=== PATIENT | male | born 2005 | race Caucasian/White ===

== ENCOUNTER 2024-04-13 11:48 | Emergency (ER) | payer OTHER ==
[~2024-04-13] VITALS: Ht 180.3 cm; Wt 96.5 kg
[2024-04-13] MEDS ORDERED: ONDA-282 PO (13:07)
[2024-04-13 13:31] VITALS: BP 120/62; TEMP 98.9; O2SAT 97
== END 2024-04-13 14:05 | disposition home or self-care (01) ==
LOC: M ED 11:48
DX: R11.2 Nausea with vomiting, unspecified (principal); R19.7 Diarrhea, unspecified; Z79.899 Other long term (current) drug therapy

== ENCOUNTER 2024-10-29 07:40 | Emergency (ER) | payer OTHER ==
[~2024-10-29] VITALS: Ht 180.3 cm; Wt 96.4 kg
[~2024-10-29 07:40] MED LIST: ONDA-282 PO
[2024-10-29] MEDS ORDERED: ISOVUE-370 76% 100 ML VIAL As Ordered ONE (10:17)
[2024-10-29] MEDS: ONDANSETRON 4MG 2ML VIAL IV ONE (10:28)
[2024-10-29] MEDS: MORPHINE 2 MG/ML 1 ML VIAL IV PRN (10:28)
[2024-10-29 10:32] LABS: BASO # 0.0 10^3/uL (0.0-0.2); BASO % 0.5 % (0.0-1.0); EOS # 0.1 10^3/uL (0.0-0.5); EOS % 1.1 % (0.0-3.0); LYMPH # 1.8 10^3/uL (1.5-5.0); LYMPH % 28.0 % (24.0-44.0); MONO # 0.6 10^3/uL (0.0-0.8); MONO % 8.9 % (2.0-8.0); NEUTROPHILS # 4.0 10^3/uL (1.5-8.5); NEUTROPHILS % 61.2 % (36.0-66.0); PLATELET COUNT, AUTOMATED 306 10^3/uL (150-450)
[2024-10-29 10:49] LABS: INR 0.94
[2024-10-29 10:59] LABS: ALT/SGPT 33 U/L (7.0-40); AST/SGOT 37 U/L (<34); CALCIUM LEVEL 9.7 MG/DL (8.5-10.1); CARBON DIOXIDE LEVEL 28 MMOL/L (20-31); CHLORIDE LEVEL 105 MMOL/L (98-107); CREATININE FOR GFR 0.95 MG/DL (0.70-1.30); GLOMERULAR FILTRATION RATE > 90.0 (>60); POTASSIUM SERUM 4.9 MMOL/L (3.5-5.1); SODIUM LEVEL 143 MMOL/L (136-145)
[2024-10-29] MEDS ORDERED: ONDA-282 PO (12:45)
[2024-10-29] MEDS ORDERED: SUCR1SS PO (12:45)
[2024-10-29 13:25] VITALS: BP 111/54; TEMP 99.1; O2SAT 97
== END 2024-10-29 13:37 | disposition home or self-care (01) ==
LOC: M ED 07:40
DX: A08.39 Other viral enteritis (principal); R74.01 Elevation of levels of liver transaminase levels; F17.290 Nicotine dependence, other tobacco product, uncomplicated; Z79.899 Other long term (current) drug therapy
CPT/HCPCS: 71046; 74177; 80047; 80048; 80076; 83605; 83690; 85025; 85610; 85730; 86850; 86900; 86901; 93005; 93041; 96374; 99285; J2405; Q9967

== ENCOUNTER 2024-11-05 08:43 | Emergency (ER) | payer OTHER ==
[~2024-11-05] VITALS: Ht 180.3 cm; Wt 97.1 kg
[~2024-11-05 08:43] MED LIST changes: +SUCR1SS PO
[2024-11-05] MEDS ORDERED: MIRA3350 PO (08:49)
[2024-11-05] MEDS ORDERED: SUCR1ORA (08:49)
[2024-11-05 09:17] LABS: BASO # 0.0 10^3/uL (0.0-0.2); BASO % 0.6 % (0.0-1.0); EOS # 0.1 10^3/uL (0.0-0.5); EOS % 1.0 % (0.0-3.0); LYMPH # 1.6 10^3/uL (1.5-5.0); LYMPH % 25.1 % (24.0-44.0); MONO # 0.4 10^3/uL (0.0-0.8); MONO % 6.5 % (2.0-8.0); NEUTROPHILS # 4.2 10^3/uL (1.5-8.5); NEUTROPHILS % 66.3 % (36.0-66.0); PLATELET COUNT, AUTOMATED 319 10^3/uL (150-450)
[2024-11-05 09:51] LABS: ALT/SGPT 30 U/L (7.0-40); AST/SGOT 20 U/L (<34); CALCIUM LEVEL 9.1 MG/DL (8.5-10.1); CARBON DIOXIDE LEVEL 29 MMOL/L (20-31); CHLORIDE LEVEL 102 MMOL/L (98-107); CREATININE FOR GFR 1.06 MG/DL (0.70-1.30); GLOMERULAR FILTRATION RATE > 90.0 (>60); POTASSIUM SERUM 4.2 MMOL/L (3.5-5.1); SODIUM LEVEL 142 MMOL/L (136-145)
[2024-11-05] MEDS ORDERED: SUCR1ORA PO (10:08)
[2024-11-05] MEDS ORDERED: ONDA-282 PO (10:08)
[2024-11-05] MEDS ORDERED: HOME MED LIST COMPLETE! XX SCH (10:10)
[2024-11-05] MEDS: IBUPROFEN 600 MG TAB PO ONE (10:35)
[2024-11-05 12:46] VITALS: BP 109/77; TEMP 97.7; O2SAT 100
[2024-11-06] MEDS ORDERED: PANT40TA29 PO (19:38)
== END 2024-11-05 13:00 | disposition home or self-care (01) ==
LOC: M ED 09:57
DX: R10.9 Unspecified abdominal pain (principal); Z79.899 Other long term (current) drug therapy

== ENCOUNTER 2024-11-06 15:20 | Emergency (ER) | payer OTHER ==
[~2024-11-06] VITALS: Ht 180.3 cm; Wt 97.4 kg
[~2024-11-06 15:20] MED LIST changes: +MIRA3350 PO; +SUCR1ORA; +SUCR1ORA PO
[2024-11-06] MEDS: KETOROLAC 30 MG/ML 1 ML VIAL IV ONE (17:49)
[2024-11-06 17:59] LABS: BASO # 0.0 10^3/uL (0.0-0.2); BASO % 0.2 % (0.0-1.0); EOS # 0.2 10^3/uL (0.0-0.5); EOS % 2.1 % (0.0-3.0); LYMPH # 2.2 10^3/uL (1.5-5.0); LYMPH % 27.4 % (24.0-44.0); MONO # 0.8 10^3/uL (0.0-0.8); MONO % 9.2 % (2.0-8.0); NEUTROPHILS # 5.0 10^3/uL (1.5-8.5); NEUTROPHILS % 61.0 % (36.0-66.0); PLATELET COUNT, AUTOMATED 287 10^3/uL (150-450)
[2024-11-06] MEDS ORDERED: ISOVUE-370 76% 100 ML VIAL As Ordered ONE (18:14)
[2024-11-06 18:22] LABS: ALT/SGPT 27 U/L (7.0-40); AST/SGOT 20 U/L (<34)
[2024-11-06 18:56] LABS: KETONE, URINE AUTO RFX NEGATIVE (NEGATIVE); LEUKOCYTE ESTERASE UR AUTO RFX NEGATIVE (NEGATIVE); NITRITE, URINE AUTO RFX NEGATIVE (NEGATIVE); RBC, URINE AUTO RFX 0 /HPF (0-3); SQUAM EPITHELIAL CELL UR AURFX 0 /HPF (0-6); WBC, URINE AUTO RFX 0 /HPF (0-3)
[2024-11-06] MEDS ORDERED: PANT40TA29 PO (19:38)
[2024-11-06 19:46] VITALS: BP 115/55; TEMP 98; O2SAT 100
[2024-11-06] MEDS: PANTOPRAZOLE 40MG TAB PO ONE (19:46)
== END 2024-11-06 19:57 | disposition home or self-care (01) ==
LOC: M ED 15:20
DX: K57.90 Diverticulosis of intestine, part unspecified, without perforation or abscess without bleeding (principal); R10.31 Right lower quadrant pain; F17.290 Nicotine dependence, other tobacco product, uncomplicated; Z79.899 Other long term (current) drug therapy
CPT/HCPCS: 74177; 80047; 80076; 81001; 83690; 85025; 96374; 99284; J1885; Q9967